=== PATIENT | male | born 1955 | race Caucasian/White ===

== ENCOUNTER 2017-05-07 06:13 | Day surgery (SDC) | payer MEDICARE, OTHER ==
[~2017-05-07 06:13] MED LIST: SODIUM CHLORIDE 0.9% 1,000 ML IV ONE
[2017-05-07] MEDS ORDERED: LIDOCAINE HCL 4% 50 ML SOLUTION TP ONE (06:14)
[2017-05-07] MEDS ORDERED: LIDOCAINE HCL 2% 30 ML JELLY TP ONE (06:14)
[2017-05-07] MEDS ORDERED: ALBUTEROL SULFATE 2.5 MG/0.5 ML NEB SOLUTION NEB ONE (06:14)
[2017-05-07] MEDS ORDERED: BENZOCAINE 20% 50 MCG/SPRAY 57 GM TP ONE (06:14)
[2017-05-07] MEDS ORDERED: MONT10TA21 PO (06:45)
[2017-05-07] MEDS ORDERED: ASPI81 PO (06:45)
[2017-05-07] MEDS ORDERED: RILU50TA PO (06:45)
[2017-05-07] MEDS ORDERED: FAMO20 PO (06:45)
[2017-05-07] MEDS ORDERED: MIDAZOLAM HCL 2 MG/2 ML VIAL ONE (07:40)
[2017-05-07] MEDS ORDERED: FentaNYL CITRATE-PF 100 MCG/2 ML VIAL ONE (07:41)
[2017-05-07] MEDS ORDERED: MethylPREDNISolone SOD SUCC 125 MG/2 ML VIAL IVP ONE (08:45)
[2017-05-07] MEDS ORDERED: MethylPREDNISolone SOD SUCC 125 MG/2 ML VIAL ONE (09:02)
[2017-05-07] MEDS ORDERED: OXYGEN THERAPY IH SCH (20:00)
== END 2017-05-07 09:55 | disposition home or self-care (01) ==
LOC: SURGERY 06:13
PROVIDERS: ATTEND Internal Medicine Critical Care Medicine
DX: J38.4 Edema of larynx (principal); B37.0 Candidal stomatitis; J44.9 Chronic obstructive pulmonary disease, unspecified; G12.21 Amyotrophic lateral sclerosis; F10.21 Alcohol dependence, in remission; Z87.891 Personal history of nicotine dependence
CPT/HCPCS: 31623; 31624; 71010; 87015 ×2; 87070; 87101; 87147; 87205; 87220; 88108; 88312; J2250; J2930; J3010; J7030